=== PATIENT | male | born 1965 | race Caucasian/White ===

== ENCOUNTER 2018-03-26 13:33 | Emergency (ER) | payer OTHER, MEDICAID, SELFPAY ==
[2018-03-26 13:52] VITALS: BP 136/87; PULSE 108; RESP 20; TEMP 36.8; O2SAT 98
== END 2018-03-26 17:03 | disposition left against medical advice (07) ==
LOC: ED 13:39
PROVIDERS: Referring Provider Emergency Medicine
DX: K08.9 Disorder of teeth and supporting structures, unspecified (principal)
CPT/HCPCS: 93005; 93010; 99281; 99282